=== PATIENT | female | born 1935 | race Caucasian/White ===

== ENCOUNTER 2018-08-08 14:02 | Emergency (ER) | payer MEDICARE ==
[~2018-08-08] VITALS: Ht 154.9 cm; Wt 50.0 kg
--- NOTE | 2018-08-08 14:06 | NUR ---
Paged for level 1 stroke alert. Arrived at 1408 from 4th floor. Pt last known well at 1130. 12 to 1230 was noted to be more confused, difficulty swallowing and coughing. Pt is oriented to self only at this time. 1415 able to state is in hospital. Not oriented to age, year or birthdate. Prior stroke in 2018 with contractures of left hand and flexion contractures of both feet. Does not move legs or wiggle toes. Can move left arm side to side, but not lift. Able to move and lift right arm. Sensation is intact over face, arms and legs. Gaze intact. Has difficulty following some simple commands without pantomine. 1450 tele neuro exam with SOC. Thrombolytics not indicated, as no clear picture of baseline. Pt has dementia. Discussed with Dr Vasquez.
--- NOTE | 2018-08-08 14:19 | NUR ---
BACK FROM CT SCAN. ANGELICA MENENDEZ AT BEDSIDE ASSESSING PT. BLOOD IS BEING DRAWN.
[2018-08-08 14:43] LABS: INR 1.1 INR; PROTHROMBIN TIME 11.3 SECONDS (9.0-12.0)
[2018-08-08 14:46] LABS: BASOPHILS # (AUTO) 0.1 X10'3 (0-0.2); BASOPHILS % (AUTO) 0.5 % (0-1); EOSINOPHILS # (AUTO) 0.3 X10'3 (0-0.9); EOSINOPHILS % (AUTO) 3.2 % (0-6); HEMATOCRIT 29.8 % (35.0-45.0); HEMOGLOBIN 9.8 g/dl (12.0-16.0); LYMPHOCYTES # (AUTO) 2.3 X10'3 (1.1-4.8); LYMPHOCYTES % (AUTO) 21.9 % (21-51); MEAN CORPUSCULAR HEMOGLOBIN 28.4 PG (27.0-31.0); MEAN CORPUSCULAR HGB CONC 32.9 g/dL (33.0-36.5); MEAN CORPUSCULAR VOLUME 86.3 FL (78-98); MEAN PLATELET VOLUME 8.2 FL (7.4-10.4); MONOCYTES # (AUTO) 0.9 X10'3 (0-0.9); MONOCYTES % (AUTO) 8.4 % (2-12); PLATELET COUNT 323 X10'3 (140-440); RED BLOOD COUNT 3.46 X10'6 (4.20-5.60); RED CELL DISTRIBUTION WIDTH 17.4 % (11.5-14.5); WHITE BLOOD COUNT 10.5 X10'3 (4.5-11.0)
[2018-08-08 14:47] LABS: ALANINE AMINOTRANSFERASE 31 U/L (12-78); ALBUMIN/GLOBULIN RATIO 0.8 (1.1-1.5); ALKALINE PHOSPHATASE 62 IU/L (46-116); ANION GAP 10 (8-16); ASPARTATE AMINO TRANSFERASE 20 U/L (10-37); BILIRUBIN,TOTAL 0.2 MG/DL (0.1-1.0); BLOOD UREA NITROGEN 35 MG/DL (7-18); BUN/CREATININE RATIO 61.4 (6.6-38.0); CALCIUM 9.3 MG/DL (8.5-10.1); CHLORIDE 103 MMOL/L (99-107); CREATININE 0.57 MG/DL (0.40-0.90); GLUCOSE 219 MG/DL (70-104); POTASSIUM 4.7 MMOL/L (3.5-5.1); SODIUM 137 MMOL/L (135-145); TOTAL CARBON DIOXIDE 24.5 MMOL/L (24-32); TOTAL PROTEIN 6.7 G/DL (6.4-8.2); eGFR > 90 ML/MIN
[2018-08-08 14:49] LABS: TROPONIN I < 0.04 NG/ML (0.0-0.05)
[2018-08-08 15:20] LABS: CLARITY,URINE TURBID (Clear); COLOR,URINE STRAW (Yellow); GLUCOSE, URINE NEGATIVE (Neg); KETONES,URINE NEGATIVE (Neg); LEUKOCYTE ESTERASE ,URINE LARGE (Neg); NITRITES, URINE POSITIVE (Neg); OCCULT BLOOD,URINE SMALL (Neg); PH,URINE 6.5 (4.8-8.0); PROTEIN,URINE NEGATIVE (Neg); UROBILINOGEN,URINE 0.2 E.U/dL (0.2-1.0)
[2018-08-08] MEDS ORDERED: normal saline 1000ml 1,000 ML IV ONE ×2 (15:20→15:35)
[2018-08-08 15:22] LABS: UA COLLECTION TYPE FOLEY CATH
--- NOTE | 2018-08-08 15:24 | NUR ---
stroke alert called off
[2018-08-08 15:31] LABS: MUCUS STRANDS NONE SEEN /LPF (Neg); SQUAMOUS EPITHELIAL CELL,UR FEW /LPF (FEW)
[2018-08-08 15:32] LABS: BACTERIA,URINE 4+ /HPF (Neg); WBC,URINE 50-100 /HPF (0-4)
[2018-08-08] MEDS ORDERED: NITR100C6 PO (15:32)
[2018-08-08] MEDS ORDERED: CefTRIAXone 2gm/D5W 50ml 50 ML IV ONE (15:35)
--- NOTE | 2018-08-08 16:43 | NUR ---
dr. powell cancelled speech therapy consult.
--- NOTE | 2018-08-08 16:44 | NUR ---
called report to chris florez at [facility]. informed pt will be transported by [facility] to acute care.
[2018-08-08 16:56] VITALS: BP 143/67
--- NOTE | 2018-08-08 17:14 | NUR ---
PT MELINAD ISSA [phone]
== END 2018-08-08 18:00 | disposition home or self-care (01) ==
LOC: ER 14:03
DX: E86.0 Dehydration (principal); N39.0 Urinary tract infection, site not specified; R41.82 Altered mental status, unspecified; I10 Essential (primary) hypertension; E11.9 Type 2 diabetes mellitus without complications; M19.90 Unspecified osteoarthritis, unspecified site; Z88.6 Allergy status to analgesic agent; Z86.73 Personal history of transient ischemic attack (TIA), and cerebral infarction without residual deficits; Z88.0 Allergy status to penicillin; Z88.8 Allergy status to other drugs, medicaments and biological substances; Z85.3 Personal history of malignant neoplasm of breast; Z88.5 Allergy status to narcotic agent
CPT/HCPCS: 36415; 70450; 71045; 80053; 81001; 84484; 85025; 85610; 87077; 87088; 87186; 93005; 96361; 96374; 99284; J0696; J7030